=== PATIENT | male | born 1965 | race Caucasian/White ===

== ENCOUNTER 2019-09-01 06:46 | Emergency (ER) | payer OTHER ==
--- NOTE | 2019-09-01 07:11 | ED ---
Abdominal Pain/Male - HPI Summary HPI Summary: 54 year old M arriving via private car complains of left flank pain radiating into his left shoulder blade and abdomen x3 weeks. Patient states the pain started as mild and intermittent. He initially noticed the pain while he was lying on his left side. He states that initially he would only have pain while lying on his left side. He states that the pain has been worsening over the last 3 weeks and becoming more persistent. He states he would have pain even while not lying on his left side. He states he would have pain while walking around. Patient drove from [place] to [place] yesterday 08/31. Patient rates pain 10/10 in severity while driving yesterday. He states he had to get out of the car and walk around which would alleviate some of the pain. No right flank pain, mid back pain, fever, nausea, vomiting, diarrhea, constipation, bloody stools, hematuria. No pain after eating. No recent fall, trauma, injury. The pain is not aggravated by breathing or raising his left upper extremity. He states that the pain does not radiate down to his left groin and that it is mostly radiating to his left shoulder blade. He has never had these symptoms before. Pain rated 7/10 in severity currently. Symptoms aggravated by nothing. Symptoms alleviated by nothing. He states he has been taking Tylenol and Naproxen with no relief. Has taken Naproxen for his chronic back pain in the past. Has not taken aspirin. Medications reviewed. Allergies noted. No hx kidney stones, ulcers, pancreatitis, gallstones. Hx hypertension. Hx asthma. No hx diabetes. Hx sciatica on left side. Has had back surgery. Hernia surgery in 2019. Orchiectomy when he was 20 years old. Hx testicular cancer. States that he drinks ETOH socially. Has never smoked cigarettes in the past. - History of Current Complaint Chief Complaint: EDFlankPain Stated Complaint: PAIN IN BODY CAVITY UNKNOWN ORGIN PER PT Time Seen by Provider: 09/01/19 07:01 Hx Obtained From: Patient Onset/Duration: Lasting Weeks - 3, Still Present, Worse Since - yesterday 2019 Timing: Constant, Intermittent Severity Initially: Mild Severity Currently: Severe Pain Intensity: 7 Pain Scale Used: 0-10 Numeric Location: Flank - left Radiates: Yes Radiates to: Other - left shoulder blade, abdomen Aggravating Factor(s): Nothing Alleviating Factor(s): Nothing Associated Signs And Symptoms: Positive: Negative - right flank pain, mid back pain, fever, nausea, vomiting, diarrhea, constipation, bloody stools, hematuria - Allergies/Home Medications Allergies/Adverse Reactions: Allergies Allergy/AdvReac Type Severity Reaction Status Date / Time No Known Allergies Allergy Verified 09/01/19 06:51 Home Medications: Home Medications NK [No Home Medications Reported] 09/01/19 [History Confirmed 09/01/19] PMH/Surg Hx/FS Hx/Imm Hx Previously Healthy: No - sciatica on left side Endocrine/Hematology History: Denies: Hx Diabetes Cardiovascular History: Reports: Hx Hypertension Respiratory History: Reports: Hx Asthma GI History: Reports: Other GI Disorders - NEG: pancreatitis, gallstones Denies: Hx Ulcer History: Denies: Hx Kidney Stones - Cancer History Cancer Type, Location and Year: testicular cancer - Surgical History Surgery Procedure, Year, and Place: back surgery. hernia surgery in 2019. orchiectomy when he was 20 years old Infectious Disease History: No Infectious Disease History: Reports: Traveled Outside the [place] in Last 30 Days - [place] - Family History Known Family History: Positive: Cardiac Disease - father, Other - stroke father Family History: NEG: cancer - Social History Alcohol Use: Occasionally Substance Use Type: Reports: None Hx Tobacco Use: No Smoking Status (MU): Never Smoked Tobacco Review of Systems Negative: Fever Gastrointestinal: Negative - constipation, bloody stools Negative: Vomiting, Diarrhea, Nausea Genitourinary: Negative - right flank pain Positive: flank pain - left. Negative: hematuria Musculoskeletal: Negative - mid back pain All Other Systems Reviewed And Are Negative: Yes Physical Exam - Summary Physical Exam Summary: Constitutional: Well-developed, Well-nourished, Alert. (-) Distressed Skin: Warm, Dry HENT: Normocephalic; Atraumatic Eyes: Conjunctiva normal Neck: Musculoskeletal ROM normal neck. (-) JVD, (-) Stridor, (-) Tracheal deviation Cardio: Rhythm regular, rate normal, Heart sounds normal; Intact distal pulses; The pedal pulses are 2+ and symmetric. Radial pulses are 2+ and symmetric. (-) Murmur Pulmonary/Chest wall: Effort normal. (-) Respiratory distress, (-) Wheezes, (-) Rales Abd: Soft, (-) tenderness, (-) Distension, (-) Guarding, (-) Rebound. He has mild left sided abdominal pain. No clear focus. No flank tenderness Back: Old surgical scar noted over lumbar spine that is non-tender in its region. Musculoskeletal: (-) Edema Lymph: (-) Cervical adenopathy Neuro: Alert, Oriented x3 Psych: Mood and affect Normal Triage Information Reviewed: Yes Vital Signs On Initial Exam: Initial Vitals Temp Pulse Resp BP Pulse Ox 97.4 F 67 20 142/103 99 09/01/19 06:48 09/01/19 06:48 09/01/19 06:48 09/01/19 06:48 09/01/19 06:48 Vital Signs Reviewed: Yes Procedures - Sedation Patient Received Moderate/Deep Sedation with Procedure: No Diagnostics - Vital Signs Vital Signs Temp Pulse Resp BP Pulse Ox 09/01/19 06:48 97.4 F 67 20 142/103 99 - Laboratory Result Diagrams: 09/01/19 07:24 09/01/19 07:24 Lab Statement: Any lab studies that have been ordered have been reviewed, and results considered in the medical decision making process. - Radiology CXR Radiology Interpretation Completed By: Radiologist Summary of Radiographic Findings: NO ACTIVE CARDIOPULMONARY DISEASE. ED physician has reviewed this report. - CT ABD/PEL CT Interpretation Completed By: Radiologist Summary of CT Findings: 1. NO EVIDENCE FOR ACUTE FINDING. 2. 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 ED physician has reviewed this report. Chest CT Interpretation Completed By: Radiologist Summary of CT Findings: NO ACUTE NONCONTRAST CT PATHOLOGY OF THE CHEST. ED physician has reviewed this report. - EKG 0935 Cardiac Rate: Bradycardia - 53 BPM EKG Rhythm: Sinus Bradycardia Summary of EKG Findings: T wave inversions in leads aVL, V5, V6. Dr. Lee has reviewed and interpreted this EKG. Abdominal Pain Male Course/Dx - Course Course Of Treatment: 54 year old M complains of worsening left flank pain radiating into his left shoulder blade and abdomen x3 weeks. Patient rates pain 10/10 in severity while driving yesterday from [place] to [place]. He states he had to get out of the car and walk around which would alleviate some of the pain. No right flank pain, mid back pain, fever, nausea, vomiting, diarrhea, constipation, bloody stools, hematuria. No pain after eating. No recent fall, trauma, injury. The pain is not aggravated by breathing or raising his left upper extremity. He states that the pain does not radiate down to his left groin and that it is mostly radiating to his left shoulder blade. He has never had these symptoms before. He states he has been taking Tylenol and Naproxen with no relief. No hx kidney stones, ulcers, pancreatitis, gallstones. Hx sciatica on left side. Has had back surgery. Upon exam, the abdomen is soft and non-distended. He has mild left sided abdominal pain. No clear focus. Old surgical scar noted over lumbar spine that is non-tender in its region. No flank tenderness. Bloodwork results with no significant abnormalities except for glucose 120. D-Dimer <200. Troponin I 0.01. Urinalysis results with no significant abnormalities except for specific gravity 1.009. An EKG shows sinus bradycardia 53 BPM and T wave inversions in leads aVL, V5, V6. CXR shows per radiologist: NO ACTIVE CARDIOPULMONARY DISEASE. CT Abd/Pel shows, per radiologist: 1. NO EVIDENCE FOR ACUTE FINDING. 2. 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 In the ED course, the patient was given Maalox , Toradol 30 mg IV, lidocaine 15 mL PO, normal saline IV fluids 1 L. Discussed with BARNEY Mayes, who recommends further imaging. CT Chest shows per radiologist: NO ACUTE NONCONTRAST CT PATHOLOGY OF THE CHEST. Patient will be discharged home with follow up from [facility] in 3 days. He was encouraged to go to [facility] for physical therapy evaluation. Patient was instructed to return to Emergency Department for new or worsening symptoms. Patient understands and is agreeable to this plan. - Diagnoses Provider Diagnoses: Abdominal pain, Chest wall pain - Provider Notifications Discussed Care Of Patient With: Remy Ballesteros Time Discussed With Above Provider: 10:40 Instructed by Provider To: Other - BARNEY Mayes, agrees to come down to see patient in [address] Ballesteros recommends further imaging. Discharge ED - Sign-Out/Discharge Documenting (check all that apply): Patient Departure - Discharge Plan Condition: Stable Disposition: HOME Patient Education Materials: Abdominal Pain (ED), Chest Wall Pain (ED) Referrals: [facility] [Outside] - 3 Days Additional Instructions: Follow up with [facility] in 3 days. Consider going to [facility] for possible physical therapy evaluation. Return to the Emergency Department for new or worsening symptoms. - Billing Disposition and Condition Condition: STABLE Disposition: Home - Attestation Statements Document Initiated by Reynaldoibe: Yes Documenting Scribe: Jerri Marion Provider For Whom Scribe is Documenting (Include Credential): Gustabo Lee DO Scribe Attestation: Jerri Gastelum scribed for Gustabo Lee DO on 09/01/19 at 1708. Scribe Documentation Reviewed: Yes Provider Attestation: The documentation as recorded by the scribeJerri accurately reflects the service I personally performed and the decisions made by Gustabo jeter DO Status of Scribe Document: Viewed
[2019-09-01] MEDS ORDERED: Ketorolac INJ* 30 MG/ML 1 ML VIAL IV PUSH ONE (07:16)
[2019-09-01] MEDS ORDERED: NS 0.9% 1000 ML** 1,000 ML IV ONE (07:16)
[2019-09-01 07:38] LABS: ABS Eosinophils 0.2 10^3/ul (0-0.6); ABS Monocytes 0.5 10^3/ul (0-0.8); ABS Neutrophils 5.4 10^3/ul (1.5-7.7); Eosinophil % 1.9 %; Hematocrit 44 % (42-52); Hemoglobin 15.6 g/dL (14.0-18.0); Lymphocyte % 24.8 %; Mean Corpuscular HGB Conc 35 g/dL (31-36); Mean Corpuscular Hemoglobin 31 pg (27-31); Mean Corpuscular Volume 88 fL (80-94); Mean Platelet Volume 8.6 fL (7.4-10.4); Platelet Count 208 10^3/uL (150-450); Red Blood Count 5.05 10^6 /uL (4.18-5.48); Red Cell Distribution Width 13 % (10-15)
[2019-09-01 07:55] LABS: Albumin 4.1 g/dL (3.2-5.2); Albumin/Globulin Ratio 1.3 (1-3); BUN/Creatinine Ratio 16.7 (8-20); C Reactive Protein 1.63 mg/L (<8.01); Calcium 9.3 mg/dL (8.6-10.3); EGFR African American 98.4 (>60); EGFR Non-African American 81.3 (>60); Globulin 3.1 g/dL (2-4); Potassium 3.8 mmol/L (3.5-5.0); Total Bilirubin 0.6 mg/dL (0.2-1.0); Total Protein 7.2 g/dL (6.4-8.9)
[2019-09-01] MEDS ORDERED: Lidocaine 2% VISCOUS* 15 ML UDC PO ONE (08:25)
[2019-09-01] MEDS ORDERED: Al Hydrox/Mg Hydrox/Simet LIQ* 30 ML UDC PO ONE (08:25)
[2019-09-01 09:30] LABS: Urine Appearance Clear; Urine Bilirubin Negative (Negative); Urine Blood Negative (Negative); Urine Color Straw; Urine Glucose Negative (Negative); Urine Ketones Negative (Negative); Urine Nitrite Negative (Negative); Urine Protein Negative (Negative); Urine Specific Gravity 1.009 (1.010-1.030); Urine Urobilinogen Negative (Negative)
[2019-09-01 09:43] LABS: Erythrocyte Sed Rate 9 mm/Hr (0-19)
[2019-09-01 10:07] LABS: Troponin I 0.01 ng/mL (<0.03)
--- NOTE | 2019-09-01 14:29 | CONS ---
GASTROENTEROLOGY CONSULT: DATE: 09/01/19 - EMERGENCY DEPT CONSULTING PHYSICIAN: Dr. Gustabo Lee, emergency room. REASON FOR CONSULTATION: Left upper quadrant or left flank pain beginning around 3 weeks ago and increasing about a week ago with it being mostly affected by changes in sleeping position or while driving. 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 He has no primary physician, but attended [employer] and has friends still in the area and therefore decided to be evaluated here. He recalls distinctly that around midnight 3 weeks ago he was rolling to his left side down and felt a sharp pain in his back or left flank. He noted that when he rolled to his right side the pain disappeared. This pattern of having discomfort while lying down continued for a couple of weeks. It seemed to be slowly getting worse. About a week ago, it began increasing in duration and moves and positions that seemed to incite it. He decided he wanted to get it looked into and decided to drive here. The drive here was excruciating and he described the pain as 9/[address] and on arrival. He still has a pronounced positional component to it, but it is now broughon t by sitting up. His appetite is excellent and he denies any acid indigestion, heartburn, or trouble eating. There has been no dysphagia. Breathing has been okay. There has been no cough, hemoptysis, hematuria, or fever. He denies having anything like this before. He does not have stomach problems chronically and takes no medications. PAST MEDICAL HISTORY: 1. Orchiectomy at age 20 for testicular cancer. 2. Hernia repairs in 2019, simultaneous right inguinal and umbilical. 3. History of back surgery. MEDICATIONS: As an outpatient, generally none though may take an NSAID a couple of times a month SOCIAL HISTORY: He is from [place] originally, but travels considerably in his work especially [place]. He has a son in [place], who is "currently being taken care of by his mother." He used to play adult hockey, but no longer does. He does ski and recalls a very minor fall about a month ago. He did not feel it hurt at all. He skied 6 days ago and did not have a fall. REVIEW OF SYSTEMS: No history of syncope, rash, seizure, arthritis, bleeding disorder, cardiac, pulmonary, hepatic, or renal disease. He has taken naproxen in the remote past for some back pain. He does state that the pain is not brought on by movements of the left arm. EXAM: He is a healthy-appearing, well-muscled, middle-aged man, in no distress , lying in bed comfortable. He is in no cardiorespiratory distress. HEENT exam is unremarkable. He has no icterus. He has no adenopathy. His lungs are clear and heart sounds normal. There is tenderness over the ribcage, left posterior costophrenic angle, T9-10 area. He is definitely tender to external pressure. He is less tender to pressure in the corresponding anterior orientation. The right side is not tender. His abdomen is symmetric with normal bowel sounds, firm, and without focal finding. Rectal: Deferred. Extremities show no edema. LABS: Hemoglobin 15.6, hematocrit 44, MCV 88, sed rate 9. D-dimer under 200. Bilirubin 0.6, ALT 25, alkaline phosphatase 64. CRP 1.63. Urinalysis normal without any blood and a specific gravity of 1.009. IMPRESSION: This 54-year-old man complains of pain that he originally thought was over the renal area. He seems consistent in that localization, though he has no renal specific symptoms. He has no gastrointestinal specific symptoms or past history suspicious for a GI disorder. This puts a focus on the musculoskeletal system in that area, especially his ribs. There is no history of trauma that would seem to explain this. His having the symptom brought on initially by rolling in bed with subsequent control of symptom by that and then especially the exacerbation while driving is not at all compatible with a peptic situation and my thoughts are to obtain rib films, potentially a bone scan and continuing outpatient workup while pain control might be instituted. [id number]/[facility] #: [id number] JENNY
== END 2019-09-01 13:20 | disposition home or self-care (01) ==
LOC: ED 06:46
DX: R10.32 Left lower quadrant pain (principal); R07.89 Other chest pain; I10 Essential (primary) hypertension; J45.909 Unspecified asthma, uncomplicated; Z85.47 Personal history of malignant neoplasm of testis; Z90.89 Acquired absence of other organs
CPT/HCPCS: 36415; 71045; 71250; 74176; 80053; 81003; 83690; 84484; 85025; 85379; 85652; 86140; 93005; 96361; 96374; 99283; A9270-GY; J1885